=== PATIENT | male | born 1950 | race Caucasian/White ===

== ENCOUNTER 2017-05-05 07:30 | Day surgery (SDC) | payer MEDICARE, OTHER ==
[~2017-05-05] VITALS: Ht 170.2 cm; Wt 108.6 kg
[2017-05-05] VITALS (22 sets, daily range): BP systolic 117–145; BP diastolic 68–87; PULSE 48–64; RESP 13–31; Ht 170.2 cm; Wt 108.6 kg
--- NOTE | 2017-05-05 08:43 | RADRPT ---
PROCEDURE: XR Chest. CLINICAL INDICATION: Preoperative evaluation. TECHNIQUE: Single frontal chest x-ray. COMPARISON: None available FINDINGS: The lungs are clear. No focal opacification is seen. No pneumothorax or pleural effusion is seen. The cardiac silhouette is prominent. Otherwise, the cardiomediastinal silhouette is unremarkable. The osseous structures are grossly unremarkable. IMPRESSION: 1. No evidence of acute cardiopulmonary disease. 2. Prominent cardiac silhouette. RPTAT: JJ .Tim Hummel MD, Date Time Electronically viewed and signed by .Tim Hummel MD, on 05/05/2017 08:42 .A/
[2017-05-05 09:37] LABS: BASOPHILS % 0.4 % (0.0-2.0); EOSINOPHILS # 0.1 10^3/ul (0.0-0.5); EOSINOPHILS % 2.3 % (0.0-7.0); HEMATOCRIT 40.4 % (42.0-52.0); HEMOGLOBIN 13.8 g/dl (14.0-18.0); LYMPHOCYTES # 1.9 10^3/ul (0.8-2.9); LYMPHOCYTES % 39.5 % (15.0-51.0); MEAN CORPUSCULAR HEMOGLOBIN 30.9 pg (29.0-33.0); MEAN CORPUSCULAR HGB CONC 34.2 g/dl (32.0-37.0); MEAN CORPUSCULAR VOLUME 90.6 fl (82.0-101.0); MEAN PLATELET VOLUME 10.3 fl (7.4-10.4); MONOCYTE # 0.4 10^3/ul (0.3-0.9); MONOCYTES % 8.5 % (0.0-11.0); NEUTROPHIL # 2.3 10^3/ul (1.6-7.5); NEUTROPHILS % 49.1 % (39.0-77.0); PLATELET COUNT 168 10^3/UL (140-415); RED BLOOD COUNT 4.46 10^6/ul (4.70-6.10); RED CELL DISTRIBUTION WIDTH 12.9 % (11.5-14.5); WHITE BLOOD COUNT 4.7 10^3/ul (4.8-10.8)
[2017-05-05] MEDS ORDERED: MTF1000T PO (09:45)
[2017-05-05] MEDS ORDERED: MAGN400T28 PO (09:45)
[2017-05-05] MEDS ORDERED: CHOL100062 PO (09:46)
[2017-05-05] MEDS ORDERED: CARV6.25 PO (09:46)
[2017-05-05] MEDS ORDERED: ALLO100T PO (09:46)
[2017-05-05] MEDS ORDERED: PRAV40TA76 PO (09:46)
[2017-05-05] MEDS ORDERED: ASPI-664 PO (09:47)
[2017-05-05] MEDS ORDERED: GLIM1TAB2 PO (09:47)
[2017-05-05] MEDS ORDERED: ALFU10TA2 PO (09:47)
[2017-05-05] MEDS ORDERED: SITA50TA2 PO (09:47)
[2017-05-05 09:51] LABS: INR 0.92; PROTIME 12.4 Sec (12.2-14.2)
[2017-05-05 09:55] LABS: CHOL/HDL RATIO 3.8 RATIO
[2017-05-05 09:56] LABS: CALCIUM 8.8 mg/dl (8.4-10.2); CREATININE 0.78 mg/dl (0.61-1.24); POTASSIUM 3.9 mmol/L (3.5-5.1)
[2017-05-05] MEDS ORDERED: HEPARIN 1000 UNITS/ML 10 ML INJ ONE (10:05)
[2017-05-05] MEDS ORDERED: LIDOCAINE 1% (MDV) 20 ML INJ ONE (10:05)
[2017-05-05] MEDS ORDERED: IODIXANOL LOCM 100 ML BTL ONE (10:05)
[2017-05-05] MEDS ORDERED: FENTAnyl 50 MCG/ML VIAL ONE (10:06)
[2017-05-05] MEDS ORDERED: MIDAZOLAM 1 MG/ML 2 ML INJ ONE (10:06)
[2017-05-05] MEDS ORDERED: NITROGLYCERIN (IC) 100 MCG/ML INJ ONE (10:06)
[2017-05-05] MEDS ORDERED: VERAPAMIL 5 MG INJ ONE (10:06)
[2017-05-05] MEDS ORDERED: SOD CHLORIDE 0.9% 500 ML ONE (11:28)
[2017-05-05] MEDS ORDERED: HOLD all METFORMIN and METFORMIN CONTAINING medications for 48 hours post procedure. Chec XX SCH (11:30)
[2017-05-05] MEDS ORDERED: SOD CHLORIDE 0.9% 1,000 ML IV SCH (11:30)
[2017-05-05] MEDS ORDERED: ACETAMINOPHEN 325 MG TAB PO PRN (11:30)
[2017-05-05] MEDS ORDERED: ONDANSETRON 4 MG INJ IV PRN (11:30)
[2017-05-05] MEDS ORDERED: AL HYDROX/MG HYDROX/SIMETH 30 ML CUP PO PRN (11:30)
[2017-05-05] MEDS ORDERED: morphine 2 MG INJ IV PRN (11:30)
--- NOTE | 2017-05-05 11:53 | OPR ---
Date/Time of Note Date/Time of Note DATE: 05/05/17 TIME: 11:52 Operative Report Preoperative Diagnosis 1.Chest pain 2.abnl MPI Postoperative Diagnosis 1.Non-obstructive cad Operation/Procedure Performed 1.[facility] 2.30 minutes concious sedation Surgeon: TIMA MAURER Anesthesia Type: moderate sedation Estimated Blood Loss: minimal Specimen: none Grafts/Implants: none Complications: no TIMA MAURER May 05, 2017 11:53
--- NOTE | 2017-05-06 08:28 | CARRPT ---
DATE OF PROCEDURE: 05/05/2017 PROCEDURE: 1. Left heart catheterization. 2. Coronary angiography. 3. Left ventriculogram. 4. 30 minutes moderate conscious sedation. ATTENDING PHYSICIAN: Erlin James MD REFERRING PHYSICIAN: Jaspal Dailey MD ANESTHESIA: Conscious, local. INDICATION: Chest pain. Positive stress test. BRIEF HISTORY: Mr. Herrera is a 66-year-old male with history of hypertension, dyslipidemia, diabetes mellitus, some complaints of substernal chest pain. Patient subsequently had a cardiac stress test, revealing positive ischemia. Patient placed on [____] therapy, continued to have chest pain. Patient brought to cardiac bundle tier and labeler in order to assess possibility of significant [____] chest pain and subsequent positive [____]. PROCEDURE: After informed consent was obtained, patient was brought to the [facility] cardiac bundle tier and labeler, where his right radial wrist prepped and draped in usual fashion. Two percent lidocaine was infiltrated into the right radial area in order to achieve adequate local anesthesia. Using a modified Seldinger technique, the radial artery was cannulated, and a 6- [place] arterial sheath was placed. A 6-[place]og[place] JL 3.5 catheter was used to cath the left main coronary ostium. With contrast injection, multiple views of the left coronary arterial system were obtained. A JL 3.5 mm guidewire and a JR4 were used to cath the right coronary ostium. With contrast injection, multiple views of the right coronary arterial system were obtained. A 6- [place] JR4 guidewire and a 6-[place] pigtail were passed down the ascending aorta into the LV. Left end-diastolic pressure measured. Power injection was done with 20 mL of contrast and then [____] catheter pullback across the aortic valve to assess for significant gradient, which was not removed. Subsequently at this time, the patient's sheath was removed. TR band was applied. This completed the procedure. There were no noted complications. FINDINGS: CORONARY ANGIOGRAPHY: Left main: 4 mm. No stenoses. Circumflex proximally 3 mm. No significant focal stenosis. Mid and distal branching obtuse marginals each sub 2 mm vessels, with no significant focal stenosis. The LAD proximally is a 4 mm vessel. The midportion has a 20 percent stenosis. The remainder of the LAD is free of significant focal stenoses. There are 2 mid branching diagonals, each sub 2 mm vessels, with no significant focal stenoses. The right coronary artery proximally is a 4 mm vessel and has luminal irregularities of 10-20 percent in the midportion. Dominant vessel. Gives off a 3 mm PDA, and a 4 mm posterolateral branch, each with no significant focal stenoses. LEFT VENTRICULOGRAM: The left ventricular ejection fraction preserved at 55-60 percent. Left ventricular end-diastolic pressure of 16-17. No significant aortic stenosis by gradient. One plus mitral regurgitation. TOTAL FLUOROSCOPY TIME: 2.2 minutes. TOTAL CONTRAST: 75 mL. IMPRESSION: 1. Very mild nonobstructive coronary artery disease. 2. Preserved left ventricle systolic function. 3. High-normal left heart filling pressures. 4. No significant aortic stenosis, by gradient. 5. One plus mitral regurgitation. RECOMMENDATIONS: 1. In light of procedure findings, at this time would maximize medical management. 2. Aggressive risk factor reduction. 3. Continue managing symptoms with probable discharge later this afternoon. Dictated By: Raffaele Trivedi /[email or web address] /Document#: [id number] CARINA
--- NOTE | 2017-05-07 11:15 | RADRPT ---
Vent Rate: 54 bpm RR Interval: 0 msec [place] Interval: 200 msec QRS Duration: 94 msec QT Interval: 450 msec QTC Interval: 426 msec P-R-T [place]: 45 - -25 - 27 degrees Sinus bradycardia Otherwise normal ECG Electronically Signed By: Enzo Shafer [id number]
== END 2017-05-05 15:17 | disposition home or self-care (01) ==
LOC: SDS 07:30
PROVIDERS: ATTEND Internal Medicine
DX: I25.10 Atherosclerotic heart disease of native coronary artery without angina pectoris (principal); E11.9 Type 2 diabetes mellitus without complications
CPT/HCPCS: 71010; 80048; 80061; 82962; 85025; 85610; 85730; 93005; 93458; C1769; C1887; C1894; J1644; J2250; J2270; J3010; J7040; Q9967

== ENCOUNTER 2018-01-28 17:43 | Inpatient (IN) | END 2018-02-02 18:50 | disposition home health service (06) | DRG 308 ==